=== PATIENT | female | born 1940 | race Caucasian/White ===

== ENCOUNTER 2017-07-22 01:52 | Inpatient (IN) | payer MEDICARE, MEDICAID ==
[~2017-07-22] VITALS: Ht 154.9 cm; Wt 84.0 kg
[2017-07-22] VITALS (938 sets, daily range): BP systolic 113–119; BP diastolic 49–81; PULSE 90–114; TEMP 97.1–98.4; O2SAT 82–95
[2017-07-22 04:03] LABS: ARTERIAL BLD GAS O2 SATURATION 91.4 % (92-100); ARTERIAL BLD GAS TCO2 CT 31.5; ARTERIAL BLOOD GAS BASE EXCESS 3.6 (-2-2); ARTERIAL BLOOD GAS HCO3 29.9 meq/L (22-26); ARTERIAL BLOOD GAS PCO2 51.6 mmHg (35-45); ARTERIAL BLOOD GAS PO2 61.9 mmHg (80-100); ARTERIAL BLOOD GAS pH 7.38 (7.35-7.45)
[2017-07-22] MEDS ORDERED: LEXAPRO20 MG PO (04:54)
[2017-07-22] MEDS ORDERED: ZETIA 10MG TAB10 MG PO (04:55)
[2017-07-22] MEDS ORDERED: ASPIRIN E.C. 8181 MG PO (04:56)
[2017-07-22] MEDS ORDERED: TOPROL XL 50MG50 MG PO (04:56)
[2017-07-22] MEDS ORDERED: ABILIFY2 MG PO (04:57)
[2017-07-22] MEDS ORDERED: TYLENOL 8 HR PO (04:58)
[2017-07-22] MEDS ORDERED: TYLENOL 500MG500 MG PO (04:58)
[2017-07-22] MEDS ORDERED: COLACE 100100 MG/CAP PO (05:00)
[2017-07-22] MEDS ORDERED: MIRALAX PA17 GM/Dose PO (05:00)
[2017-07-22] MEDS ORDERED: CALCIUM 600-D 61 TAB PO (05:00)
[2017-07-22] MEDS ORDERED: VITAMIN D 50,1.25 MG PO (05:01)
[2017-07-22] MEDS ORDERED: CLARITIN 1010 MG/TAB PO (05:01)
[2017-07-22] MEDS ORDERED: TRAVATAN Z 2.52.5 ML OU (05:02)
[2017-07-22] MEDS ORDERED: LIPITOR20 MG PO (05:03)
[2017-07-22] MEDS ORDERED: MOBIC 7.5MG7.5 MG PO (05:04)
[2017-07-22] MEDS ORDERED: SINEQUAN 1010 MG/CAP PO (05:04)
[2017-07-22] MEDS ORDERED: 00186-0372-20 IH (05:06)
[2017-07-22] MEDS ORDERED: SYNTHROID 0.0.025 MG PO (05:07)
[2017-07-22] MEDS ORDERED: VENTOLIN0.09 MG IH (05:07)
[2017-07-22 07:02] LABS: HEMATOCRIT 45.8 % (37.0-47.0); MEAN CELL VOLUME 100 fl (80.0-100.0); MEAN CORPUSCULAR HEMOGLOBIN 33 pg (27.0-31.0); MEAN CORPUSCULAR HGB CONC 33 g/dl (33.0-37.0); MEAN PLATELET VOLUME 10.9 fl (7.4-10.4); PLATELET COUNT 285 K/mm3 (130-400); REDCELL DISTRIBUTION WIDTH-CV 13.1 % (11.5-14.5)
[2017-07-22 07:51] LABS: BAND 9 % (0-10); LYMPHOCYTE 6 % (20.0-51.0); NEUTROPHILS 83 % (42.0-75.2); PLATELET ESTIMATE NORMAL (NORMAL)
[2017-07-22 08:49] LABS: CALCIUM 8.5 mg/dL (8.4-10.2); CHOLESTEROL RISK RATIO 2.9; CREATININE, serum 0.68 mg/dL (0.52-1.25); POTASSIUM 4.6 mmol/L (3.4-5.0)
[2017-07-22 09:02] LABS: TROPONIN-I 0.63 ng/mL (0.000-0.034)
[2017-07-23] VITALS (1265 sets, daily range): BP systolic 103–142; BP diastolic 46–78; PULSE 78–133; TEMP 97.6–99.1; O2SAT 66–97
[2017-07-23 06:19] LABS: HEMATOCRIT 45.9 % (37.0-47.0); HEMOGLOBIN 14.5 g/dl (12.5-16.0); MEAN CELL VOLUME 104 fl (80.0-100.0); MEAN CORPUSCULAR HEMOGLOBIN 33 pg (27.0-31.0); MEAN CORPUSCULAR HGB CONC 32 g/dl (33.0-37.0); MEAN PLATELET VOLUME 10.5 fl (7.4-10.4); PLATELET COUNT 213 K/mm3 (130-400); RED BLOOD COUNT 4.42 M/mm3 (4.10-5.30); REDCELL DISTRIBUTION WIDTH-CV 13.2 % (11.5-14.5)
[2017-07-23 07:21] LABS: CALCIUM 8.3 mg/dL (8.4-10.2); CREATININE, serum 0.88 mg/dL (0.52-1.25); MAGNESIUM 1.7 mg/dL (1.6-2.3); PHOSPHOROUS 3.5 mg/dL (2.5-4.5); POTASSIUM 4.2 mmol/L (3.4-5.0)
[2017-07-23 07:24] LABS: TROPONIN-I 0.298 ng/mL (0.000-0.034)
[2017-07-23 09:28] LABS: BAND 52 % (0-10); LYMPHOCYTE 16 % (20.0-51.0); NEUTROPHILS 32 % (42.0-75.2); PLATELET ESTIMATE NORMAL (NORMAL)
[2017-07-23 13:34] LABS: INFLUENZA A NEGATIVE; INFLUENZA B NEGATIVE
[2017-07-24] VITALS (729 sets, daily range): BP systolic 85–137; BP diastolic 35–92; PULSE 62–100; TEMP 97.7–98.2; O2SAT 80–97
[2017-07-24 05:55] LABS: BASO % 0.1 % (0.0-2.0); GRAN # 9.2 (1.4-6.5); GRAN % 79.3 % (42.2-75.2); HEMOGLOBIN 13.5 g/dl (12.5-16.0); LYMPH # 1.6 (1.2-3.4); LYMPH % 13.8 % (20.0-51.0); MEAN CELL VOLUME 104 fl (80.0-100.0); MEAN CORPUSCULAR HEMOGLOBIN 33 pg (27.0-31.0); MEAN CORPUSCULAR HGB CONC 31 g/dl (33.0-37.0); MEAN PLATELET VOLUME 10.6 fl (7.4-10.4); MONO # 0.7 (0.1-0.6); MONO % 6.4 % (1.7-9.3); PLATELET COUNT 209 K/mm3 (130-400); RED BLOOD COUNT 4.14 M/mm3 (4.10-5.30); REDCELL DISTRIBUTION WIDTH-CV 13.2 % (11.5-14.5)
[2017-07-24 08:07] LABS: HEMATOCRIT 43.2 % (37.0-47.0); HEMOGLOBIN 13.8 g/dl (12.5-16.0); MEAN CELL VOLUME 102 fl (80.0-100.0); MEAN CORPUSCULAR HEMOGLOBIN 33 pg (27.0-31.0); MEAN CORPUSCULAR HGB CONC 32 g/dl (33.0-37.0); MEAN PLATELET VOLUME 9.6 fl (7.4-10.4); PLATELET COUNT 214 K/mm3 (130-400); RED BLOOD COUNT 4.22 M/mm3 (4.10-5.30)
[2017-07-24 08:13] LABS: PROTHROMBIN TIME 11.1 SECONDS (9.7-12.8)
[2017-07-24 08:16] LABS: CALCIUM 8.5 mg/dL (8.4-10.2); CREATININE, serum 0.68 mg/dL (0.52-1.25); POTASSIUM 4.5 mmol/L (3.4-5.0)
[2017-07-24 13:21] LABS: HEMATOCRIT 46.7 % (37.0-47.0); HEMOGLOBIN 15.1 g/dl (12.5-16.0); MEAN CELL VOLUME 102 fl (80.0-100.0); MEAN CORPUSCULAR HEMOGLOBIN 33 pg (27.0-31.0); MEAN CORPUSCULAR HGB CONC 32 g/dl (33.0-37.0); PLATELET COUNT 243 K/mm3 (130-400); RED BLOOD COUNT 4.59 M/mm3 (4.10-5.30); REDCELL DISTRIBUTION WIDTH-CV 13.1 % (11.5-14.5)
[2017-07-24 13:41] LABS: PARTIAL THROMBOPLASTIN TIME 29.8 SECONDS (26.0-37.0)
[2017-07-24 13:43] LABS: CALCIUM 8.7 mg/dL (8.4-10.2); CREATININE, serum 0.78 mg/dL (0.52-1.25); POTASSIUM 4.7 mmol/L (3.4-5.0)
[2017-07-25] VITALS (850 sets, daily range): BP systolic 98–142; BP diastolic 43–90; PULSE 67–119; TEMP 97.1–98.6; O2SAT 75–99
[2017-07-25 08:16] LABS: CALCIUM 8.4 mg/dL (8.4-10.2); CREATININE, serum 0.7 mg/dL (0.52-1.25); POTASSIUM 4.5 mmol/L (3.4-5.0)
[2017-07-26] VITALS (7 sets, daily range): BP systolic 93–127; BP diastolic 44–63; PULSE 65–86; TEMP 97.3–98.6
[2017-07-26] MEDS ORDERED: IPRATROPIUM BROM3 M1 IH (12:06)
[2017-07-26] MEDS ORDERED: LASIX 20MG TABL20 MG PO (12:08)
[2017-07-26] MEDS ORDERED: PREDNISONE20 MG PO (12:11)
[2017-07-27 04:50] VITALS: BP 112/54; PULSE 73; TEMP 97.4
[2017-07-27 07:28] LABS: BASO % 0.1 % (0.0-2.0); EOS % 0.1 % (0-4.0); GRAN # 7.9 (1.4-6.5); GRAN % 68.5 % (42.2-75.2); HEMATOCRIT 43.6 % (37.0-47.0); HEMOGLOBIN 13.9 g/dl (12.5-16.0); LYMPH # 2.4 (1.2-3.4); LYMPH % 20.9 % (20.0-51.0); MEAN CELL VOLUME 103 fl (80.0-100.0); MEAN CORPUSCULAR HEMOGLOBIN 33 pg (27.0-31.0); MEAN CORPUSCULAR HGB CONC 32 g/dl (33.0-37.0); MEAN PLATELET VOLUME 9.8 fl (7.4-10.4); PLATELET COUNT 290 K/mm3 (130-400); RED BLOOD COUNT 4.25 M/mm3 (4.10-5.30); REDCELL DISTRIBUTION WIDTH-CV 12.8 % (11.5-14.5)
[2017-07-27 07:48] LABS: CREATININE, serum 0.73 mg/dL (0.52-1.25); MAGNESIUM 1.8 mg/dL (1.6-2.3); POTASSIUM 4.2 mmol/L (3.4-5.0)
[2017-07-27 08:00] VITALS: BP 111/62; PULSE 80; TEMP 97.5
[2017-07-27 12:35] VITALS: BP 100/44; PULSE 73; TEMP 98.7
[2017-07-27] MEDS ORDERED: IPRATROPIUM BROM3 M1 IH (13:51)
[2017-07-27] MEDS ORDERED: OMNICEF 300MG300 MG PO (13:52)
[2017-07-27 14:05] VITALS: BP 100/44; PULSE 73; TEMP 98.7
[2017-07-27 16:55] VITALS: BP 125/54; PULSE 75; TEMP 98
[2017-07-27 19:26] VITALS: BP 128/72; PULSE 82; TEMP 97.6
[2017-07-28 00:52] VITALS: BP 122/55; PULSE 70; TEMP 97.4
[2017-07-28 03:51] VITALS: BP 116/71; PULSE 72; TEMP 97.9
[2017-07-28 08:00] VITALS: BP 130/75; PULSE 77; TEMP 98.8
[2017-07-28 11:52] VITALS: BP 133/69; PULSE 78; TEMP 99.3
[2017-07-28 17:27] VITALS: BP 118/61; PULSE 71; TEMP 98.2
[2017-07-28 20:25] VITALS: BP 115/50; PULSE 78; TEMP 98.6
[2017-07-29] VITALS (7 sets, daily range): BP systolic 90–132; BP diastolic 32–71; PULSE 57–95; TEMP 97.5–98.6
[2017-07-29 07:05] LABS: HEMATOCRIT 45.5 % (37.0-47.0); HEMOGLOBIN 14.8 g/dl (12.5-16.0); MEAN CELL VOLUME 101 fl (80.0-100.0); MEAN CORPUSCULAR HEMOGLOBIN 33 pg (27.0-31.0); MEAN CORPUSCULAR HGB CONC 33 g/dl (33.0-37.0); MEAN PLATELET VOLUME 9.8 fl (7.4-10.4); PLATELET COUNT 335 K/mm3 (130-400); RED BLOOD COUNT 4.51 M/mm3 (4.10-5.30); REDCELL DISTRIBUTION WIDTH-CV 12.5 % (11.5-14.5)
[2017-07-29 07:27] LABS: CALCIUM 9.8 mg/dL (8.4-10.2); CREATININE, serum 0.84 mg/dL (0.52-1.25); MAGNESIUM 2.2 mg/dL (1.6-2.3); PHOSPHOROUS 4.7 mg/dL (2.5-4.5); POTASSIUM 4.4 mmol/L (3.4-5.0)
[2017-07-29 08:08] LABS: BAND 2 % (0-10); LYMPHOCYTE 18 % (20.0-51.0); NEUTROPHILS 76 % (42.0-75.2)
[2017-07-29 08:09] LABS: PLATELET ESTIMATE NORMAL (NORMAL); STOMATOCYTE 2+; TOXIC GRANULATION PRESENT
[2017-07-29 18:04] LABS: FOLATE (FOLIC ACID) 11.5 ng/mL (7.0-31.4)
[2017-07-30 04:39] VITALS: BP 120/65; PULSE 71; TEMP 97.3
[2017-07-30 07:23] LABS: HEMATOCRIT 45.2 % (37.0-47.0); HEMOGLOBIN 14.7 g/dl (12.5-16.0); MEAN CELL VOLUME 101 fl (80.0-100.0); MEAN CORPUSCULAR HEMOGLOBIN 33 pg (27.0-31.0); MEAN CORPUSCULAR HGB CONC 33 g/dl (33.0-37.0); PLATELET COUNT 315 K/mm3 (130-400); RED BLOOD COUNT 4.48 M/mm3 (4.10-5.30); REDCELL DISTRIBUTION WIDTH-CV 12.7 % (11.5-14.5)
[2017-07-30 07:51] LABS: CALCIUM 9.3 mg/dL (8.4-10.2); CREATININE, serum 0.87 mg/dL (0.52-1.25); MAGNESIUM 1.9 mg/dL (1.6-2.3); PHOSPHOROUS 4.4 mg/dL (2.5-4.5); POTASSIUM 4.2 mmol/L (3.4-5.0)
[2017-07-30 07:53] LABS: BAND 1 % (0-10); EOSINOPHIL 1 % (0-4); LYMPHOCYTE 23 % (20.0-51.0); MYELOCYTE 1 % (0-0); NEUTROPHILS 66 % (42.0-75.2)
[2017-07-30 07:54] LABS: PLATELET ESTIMATE NORMAL (NORMAL)
[2017-07-30 08:05] VITALS: BP 130/52; PULSE 71; TEMP 97.6
[2017-07-30] MEDS ORDERED: PREDNISONE10 MG PO (10:32)
[2017-07-30 10:55] VITALS: BP 100/44; PULSE 73; TEMP 98.7
== END 2017-07-30 13:20 | DRG 189 ==
LOC: IMCU 01:52 → ICU 03:15 → MEDICAL 07-25 15:48
PROVIDERS: Family Medicine; Internal Medicine; Internal Medicine Cardiovascular Disease; Nurse Practitioner; Nurse Practitioner Family
PROC: B2111ZZ Fluoroscopy of Multiple Coronary Arteries using Low Osmolar Contrast (ICD-10-PCS; principal; 2017-07-24)
DX: J96.01 Acute respiratory failure with hypoxia (principal); I50.23 Acute on chronic systolic (congestive) heart failure; I21.A1 Myocardial infarction type 2; J44.1 Chronic obstructive pulmonary disease with (acute) exacerbation; E87.2 Acidosis; E87.1 Hypo-osmolality and hyponatremia; I11.0 Hypertensive heart disease with heart failure; I25.10 Atherosclerotic heart disease of native coronary artery without angina pectoris; F17.210 Nicotine dependence, cigarettes, uncomplicated; F20.9 Schizophrenia, unspecified; F32.9 Major depressive disorder, single episode, unspecified; I27.22 Pulmonary hypertension due to left heart disease; I34.0 Nonrheumatic mitral (valve) insufficiency; R73.9 Hyperglycemia, unspecified
CPT/HCPCS: 99222-AI; 99231-AI; 99232-AI; 99233-AI; 99239; A9502; C1760; C1894; J0696; J1250; J1644; J1940; J2250; J2930; J3010; J3475; J7512; Q9967

== ENCOUNTER → 2018-07-12 | Outpatient (CLI) | payer MEDICARE, MEDICAID ==
[~2018-07-12] MED LIST: 00186-0372-20 IH; ABILIFY2 MG PO; ASPIRIN E.C. 8181 MG PO; CALCIUM 600-D 61 TAB PO; CLARITIN 1010 MG/TAB PO; COLACE 100100 MG/CAP PO; IPRATROPIUM BROM3 M1 IH; LASIX 20MG TABL20 MG PO; LEXAPRO20 MG PO; LIPITOR20 MG PO; MIRALAX PA17 GM/Dose PO; MOBIC 7.5MG7.5 MG PO; OMNICEF 300MG300 MG PO; PREDNISONE10 MG PO; PREDNISONE20 MG PO; SINEQUAN 1010 MG/CAP PO; SYNTHROID 0.0.025 MG PO; TOPROL XL 50MG50 MG PO; TRAVATAN Z 2.52.5 ML OU; TYLENOL 500MG500 MG PO; TYLENOL 8 HR PO; VENTOLIN0.09 MG IH; VITAMIN D 50,1.25 MG PO; ZETIA 10MG TAB10 MG PO
== END ==
LOC: BHSO 14:17
DX: F31.81 Bipolar II disorder (principal)
CPT/HCPCS: G0463

== ENCOUNTER → 2019-01-03 | Outpatient (CLI) | payer MEDICARE, MEDICAID | LOC: BHSO 10:20 | DX: F31.81 Bipolar II disorder (principal) | CPT/HCPCS: G0463 ==